=== PATIENT | female | born 2000 | race Caucasian/White ===

== ENCOUNTER → 2018-07-09 | Outpatient (CLI) | payer BC, OTHER | LOC: CAT 14:23 | DX: D27.0 Benign neoplasm of right ovary (principal); N28.89 Other specified disorders of kidney and ureter; M43.16 Spondylolisthesis, lumbar region ==

== ENCOUNTER → 2020-05-15 | Outpatient (CLI) | payer BC, OTHER | LOC: SJCVCIMAG 08:16 | PROVIDERS: ATTEND Internal Medicine | DX: R00.0 Tachycardia, unspecified (principal); R00.2 Palpitations ==